=== PATIENT | female | born 1975 | race Caucasian/White ===

== ENCOUNTER → 2023-07-25 16:00 | Outpatient (REF) | payer BC, SELFPAY ==
[2023-08-03 02:45] LABS: HPV, High Risk Not Detected; HPV, High Risk Source Cervical
== END ==
LOC: CPAP 16:00
PROVIDERS: ATTENDING PHYSICIAN Nurse Practitioner Adult Health
DX: Z01.419 Encounter for gynecological examination (general) (routine) without abnormal findings (principal)
CPT/HCPCS: 87624; G0123

== ENCOUNTER → 2023-08-15 17:20 | Outpatient (REF) | payer BC, SELFPAY | LOC: WDC 17:20 | PROVIDERS: ATTENDING PHYSICIAN Nurse Practitioner Adult Health; FAMILY PHYSICIAN Family Medicine | DX: Z12.31 Encounter for screening mammogram for malignant neoplasm of breast (principal) | CPT/HCPCS: 77063; 77067 ==

== ENCOUNTER → 2023-12-20 08:30 | Outpatient (REF) | payer BC, SELFPAY ==
[2023-12-20 11:46] LABS: Hematocrit 37.2 % (37.0-47.0); Hemoglobin 12.8 g/dL (12.0-16.0); Mean Corp Hgb Conc. 34.4 g/dL (33.0-37.0); Mean Corpuscular Hgb 29.5 pg (27.0-31.0); Mean Corpuscular Volume 85.7 fL (81.0-99.0); Platelet Count 302 10^3/uL (130-400); Red Blood Cell Count 4.34 10^6/uL (4.20-5.40); Red Cell Dist. Width 13.5 % (11.5-14.5); White Blood Cell Count 6.4 10^3/uL (4.8-10.8)
[2023-12-20 12:10] LABS: ALT (SGPT) 14 U/L (0-35); AST (SGOT) 19 U/L (14-36); Albumin 4.6 g/dl (3.5-5.0); Alkaline Phosphatase 74 U/L (38-126); Blood Urea Nitrogen 8 mg/dl (7-17); Calcium 9.8 mg/dl (8.4-10.2); Carbon Dioxide 25 mmol/L (22-30); Chloride 103 mmol/L (98-107); Glucose 91 mg/dl (70-99); HDL Cholesterol 60 mg/dl; LDL Cholesterol, Calculated 107 mg/dl; Potassium 4.5 mmol/L (3.5-5.1); Sodium 136 mmol/L (135-145); Total Bilirubin 0.3 mg/dl (0.2-1.3); Total Cholesterol 184 mg/dl (50-199); Total Protein 6.8 g/dl (6.3-8.2); Triglyceride 88 mg/dl (10-149); Very Low Density Lipoprotein 17 mg/dl (0-30); eGFR > 60.00
[2023-12-20 12:45] LABS: Free T3 2.98 pg/ml (2.77-5.27); Free T4 0.74 ng/dl (0.78-2.19)
[2023-12-20 12:48] LABS: Vitamin D, 25-OH*** 38.8 ng/mL (30-80)
[2023-12-20 12:58] LABS: TSH 1.76 uIU/ml (0.47-4.68)
[2023-12-20 14:36] LABS: Glycohemoglobin (HgbA1c) 5.4 % (4.0-5.6)
== END ==
LOC: REG 08:30
PROVIDERS: ATTENDING PHYSICIAN Nurse Practitioner Adult Health
DX: Z00.00 Encounter for general adult medical examination without abnormal findings (principal); R53.83 Other fatigue; E55.9 Vitamin D deficiency, unspecified; E78.2 Mixed hyperlipidemia; R00.2 Palpitations
CPT/HCPCS: 36415; 80053; 80061; 82306; 83036; 84439; 84443; 84481; 85027

== ENCOUNTER 2024-02-25 12:40 | Emergency (ER) | payer BC, SELFPAY ==
[2024-02-25 13:02] VITALS: BP 176/109
--- NOTE | 2024-02-25 13:23 | ED.GENMED ---
History of Present Illness
General
Chief Complaint: Abdominal Pain
Source: patient
Exam Limitations: none
Time Seen by Provider: 02/25/24 13:22
Nursing documentation reviewed up to this point in time: agreed with
History of Present Illness
History of Present Illness:
48-year-old female with no reported chronic medical issues presents to the emergency room for evaluation of chest/upper abdominal pain. 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 She says that she was
running around doing tasks for the code when she began to have acute onset chest pain and epigastric pain. She reports radiation to the back and to the right jaw. She says that initially she thought it could be heartburn and so she tried some
Nexium and some Tums but symptoms actually worsened and became quite severe. She says she has had some associated nausea but no vomiting. She denies any shortness of breath. She denies any dizziness. Denies any palpitations. She says that with
symptoms escalating she was sent to the emergency room to be evaluated. She says that since arrival her symptoms have improved a bit from their maximum severity but have not resolved. She says that she does exercise on a regular basis typically
walking for a few miles�she denies any history of exertional symptoms. She denies any known cardiac history. She denies any history of gallstones or GI issues.
Past History
Past History
ED Past Medical History: None
ED Past Surgical History: None
Social History
Living: with family
Employment: Employed
Review of Systems
Review of Systems
All Other Systems: ROS reviewed and negative except as documented in HPI and ROS
Constitutional: Denies fever or chills
Respiratory: Denies trouble breathing
Cardiac: Reports chest pain; Denies palpitations
ABD/GI: Reports abdominal pain and nausea; Denies vomiting
: Denies flank pain
Musculoskeletal: Denies neck pain or back pain
Neurological: Denies dizzy or headache
Phy Exam
Physical Exam
Physical Exam:
General: Awake, alert, oriented x3; appears anxious
Head: Normocephalic, atraumatic
Eyes: Conjunctiva normal, sclera anicteric
Throat: Airway intact, handling secretions
Neck: Trachea midline, no JVD
Lungs: Clear to auscultation bilaterally, no wheezing, rales, rhonchi
Heart: Regular rate and rhythm, no murmurs, gallops, or rubs
Abd: Soft, non distended, mildly tender in the epigastrium
Neuro: No gross deficits
Extremities: No edema in extremities, warm and well-perfused
Scores
Heart Failure Risk
Heart Failure Risk Score: Not Applicable
Heart Score for Chest Pain Patients
STEMI patient?: No
History: Moderately Suspicious
ECG: Normal
Age: >45 - <65 years
Risk Factors: No Risk Factors
Troponin: </= Normal Limit
Heart Score for Chest Pain Patients: 2
Heart Score Risk: 2.5% MACE over next 6 weeks
Withdrawal Assessment of Alcohol
Withdrawal Assessment Completed?: Not applicable
Course
Orders/Labs/Results
Orders:
Orders
02/25/24 13:02
Electrocardiogram (*1) Urgent
Reason for Study: Abdominal Pain
EKG- Treatment ONCE
Test Result ONCE
02/25/24 13:24
US Abdomen Complete/Upper Urgent
Comment:
Reason For Exam: upper abd pain, N/V
02/25/24 13:39
Complete Blood Count/With Diff Urgent
Comprehensive Metabolic Panel Urgent
HCG, Serum Qualitative Screen Urgent
Lipase Urgent
Troponin I Urgent
02/25/24 13:58
Nitroglycerin Sublingual [Nitrostat (Sublingual)] 0.4 mg SL NOW STA
Ondansetron Injectable [Zofran] 4 mg IV NOW STA
02/25/24 14:09
Electrocardiogram (*1) Urgent
Reason for Study: Chest Pain
EKG- Treatment ONCE
02/25/24 14:30
CARDIOLOGY CONSULT Urgent
Consulting Provider: Mike Contreras
Was physician already notified: Yes
02/25/24 14:35
Echo 2D MMode Color/Doppler Urgent
Reason for Study: chest pain
Cardiology Consult: Mike Contreras
02/25/24 15:09
Urinalysis Reflex To Culture Urgent
Date Specimen was Collected: 02/25/24
Time Specimen was Collected: 13:02
02/25/24 15:51
Troponin I Urgent
02/25/24 16:34
Troponin I Urgent
Abnormal Lab Results
02/25/24
13:39
Absolute Monos (auto) 0.7 H 10^3/uL
(0.1-0.6)
Glucose 114 H mg/dl
(70-99)
Albumin 5.1 H g/dl
(3.5-5.0)
02/25/24 13:39
02/25/24 13:39
Vital Signs
Initial and Last Documented VS:
Initial Vital Signs
Temp Pulse Resp BP Pulse Ox
36.7 C 73 16 176/109 98
02/25/24 13:02 02/25/24 13:02 02/25/24 13:02 02/25/24 13:02 02/25/24 13:02
Last Documented Vital Signs
Temp Pulse Resp BP Pulse Ox
36.7 C 77 18 131/81 97
02/25/24 13:02 02/25/24 16:15 02/25/24 16:18 02/25/24 16:00 02/25/24 16:15
MDM/Problems Addressed
Differential Diagnosis Includes:
ACS/[place], cholelithiasis/cholecystitis, pancreatitis, gastritis, PUD, nephrolithiasis, aortic dissection considered somewhat less likely clinically
MDM/Problems Addressed:
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 Symptoms have improved but not resolved. Hypertensive to 176/109 on
arrival but otherwise normal vitals. Physical exam as above. Plan to place an IV check labs including a CBC and a CMP. Will check lipase. Check urinalysis. EKG shows no STEMI�will need to trend cardiac enzymes as story is at least somewhat
concerning for anginal symptoms. Check upper abdominal ultrasound to evaluate for signs of cholelithiasis/cholecystitis. Can trial some nitroglycerin and give Zofran as well. Will monitor closely reassess after the above�aortic dissection is a
consideration given abrupt onset of her symptoms and her hypertension but symptoms are improving and she does not appear in distress she has no pulse deficit�hold on CTA for now but low threshold if symptoms and vitals not improving.
Labs reviewed: CBC and CMP unremarkable. Troponin undetectable. Gallbladder ultrasound unremarkable. Reassessment after nitroglycerin patient says symptoms completely resolved. Case discussed with cardiology for consultation with concern for
anginal chest pain�will trend troponins and obtain an echocardiogram.
Echocardiogram reassuring. Repeat troponin undetectable. Patient was evaluated cardiology at bedside�with negative troponins and no recurrence of chest pain recommend discharge and a arranging for outpatient stress testing. Patient feels
comfortable with this plan. Spoke about return precautions and all questions answered.
Acute Exacerbation and/or Progression of Chronic Illness:
Acutely hypertensive
Acute Exacerbation and/or Progression of Chronic Illness: HTN
*Pulse Oximetry
Patient hypoxic: no
*EKG
Interpreted by ED Provider?: Yes
Heart Rate: 73
Rate: normal
Rhythm: sinus
Norris: normal axis
Interval: normal interval
QRS Pattern: normal QRS
Ischemia: no ischemia
*Critical Care Note
Total Time (30-74mins, 75-104mins- exclusive of procedures): Not Applicable
Data Reviewed
Source: patient
Patient Management
Discussion with other providers: Revenue Field Auditor (Discussed with cardiology)
ED Attending Note
-
Portions of this chart may have been created with voice recognition software.� Occasional wrong word or��sound alike� substitutions may have occurred due to the inherent limitations of voice recognition software.
Discharge Plan
Departure
Patient Disposition: Home (Routine Discharge)
Date of Disposition: 02/25/24
Time of Disposition: 17:38
Patient with high blood pressure during this ER visit?: Yes
Discharge Problem:
Chest pain
Instructions: Chest Pain DCA Follow Up
Referrals:
Mike Contreras DO [Active] - Keep scheduled appt
Tonny Otoole DO [Family Provider] -
Activity Restrictions/Additional Instructions:
You should follow-up with cardiology as directed�they will call you in the morning to schedule you for follow-up. You should refrain from any physical exertion while awaiting your cardiac evaluation. If you have recurrence of chest pain or develop
any new symptoms that are concerning please return immediately to the emergency room.
Thank you for visiting the Emergency Department at [facility].
1. Please schedule a follow up appointment as directed. Call first thing tomorrow morning to make an appointment.
2. If indicated, please take your medications as instructed and indicated on discharge paperwork.
3. If any of your symptoms do not improve, or persist, or become more severe within 6-12 hours, please return to the emergency department for further care.
4. Please return to the emergency department if you develop a headache, neck pain/stiffness, fever greater than 100.4F, chest pain, shortness of breath, persistent nausea, vomiting, slurred speech, difficulty walking, numbness/tingling, weakness,
signs of infection or any other symptoms that are worrisome to you.
Please call [phone] if you have any questions.
Interventions
Interventions:
*Risk Screen - Suicide Last Done: 02/25/24 13:02
*General Assessment Last Done: 02/25/24 13:28
*Neglect/Abuse Screening Last Done: 02/25/24 13:02
*ED COVID-19 Vaccine History Last Done: 02/25/24 13:28
KA-Tigvyu-Myknknyhwp Assessment Last Done: 02/25/24 14:34
Discharge Date and Time
Print Language: GERMAN
[2024-02-25 13:28] VITALS: BMI 33.0
[2024-02-25 13:50] LABS: % Basophils 0.3 % (0-2); % Eosinophils 0.4 % (0-6); % Immature Granulocytes 0.2 % (0-0.5); % Lymphocytes 24.5 % (20.5-51.1); % Neutrophils 67.6 % (42.2-75.2); Absolute Lymphocytes 2.3 10^3/uL (1.2-3.4); Absolute Monocytes 0.7 10^3/uL (0.1-0.6); Absolute Neutrophils 6.2 10^3/uL (1.4-6.5); Hematocrit 37.2 % (37.0-47.0); Hemoglobin 13.2 g/dL (12.0-16.0); Mean Corp Hgb Conc. 35.5 g/dL (33.0-37.0); Mean Corpuscular Hgb 30.9 pg (27.0-31.0); Mean Corpuscular Volume 87.1 fL (81.0-99.0); Nucleated Red Blood Cells % 0 %; Platelet Count 262 10^3/uL (130-400); Red Blood Cell Count 4.27 10^6/uL (4.20-5.40); Red Cell Dist. Width 12.6 % (11.5-14.5); White Blood Cell Count 9.2 10^3/uL (4.8-10.8)
[2024-02-25 14:03] VITALS: BP 133/90
[2024-02-25] MEDS: ZOFRAN 4 MG IV (14:05)
[2024-02-25] MEDS: NITROSTAT (SUBLINGUAL) 0.4 MG SL (14:05)
[2024-02-25 14:07] LABS: HCG, Serum Qualitative Screen Negative
[2024-02-25 14:14] LABS: ALT (SGPT) 18 U/L (0-35); AST (SGOT) 23 U/L (14-36); Albumin 5.1 g/dl (3.5-5.0); Alkaline Phosphatase 81 U/L (38-126); Blood Urea Nitrogen 10 mg/dl (7-17); Carbon Dioxide 25 mmol/L (22-30); Chloride 100 mmol/L (98-107); Estimated Creatinine Clearance 103 ml/min; Glucose 114 mg/dl (70-99); Lipase 95 U/L (23-300); Potassium 3.8 mmol/L (3.5-5.1); Sodium 138 mmol/L (135-145); Total Bilirubin 0.4 mg/dl (0.2-1.3); Total Protein 7.4 g/dl (6.3-8.2); eGFR > 60.00
[2024-02-25 14:23] LABS: Troponin I < 0.012 ng/ml
[2024-02-25 14:37] VITALS: BP 114/80
[2024-02-25 15:00] VITALS: BP 127/92
--- NOTE | 2024-02-25 15:18 | CON.CAR ---
Addendum entered and electronically signed by Mike Contreras DO 02/25/24 20:50:
I saw and examined the patient.
The Chief Environmental Commitment Officer's note was reviewed and I agree with the note.
Comment:
Plan:
Discussed her atypical chest pain
Firs trop was negative. If second negative, then can follow up as outpt for ischemic eval.
Urgent echo was unremarkable with preserved EF and no significant valve disease.
Check outpt stress echo to eval for ischemia.
Outpt follow up arranged
Discussed with family at bedside.
Discussed with ER
Original Note:
Consultation
Consultation Request
Date/Time Consultation Requested: 02/25/24
Date/Time Consultation Performed: 02/25/24
Requesting Provider: Dr. John in the ER
Performing Provider: Dr. Contreras
Reason for Consultation: Chest pain
Medical History
-
History of Present Illness:
Patient came to [facility] with chest and epigastric pain that happened at work and cardiology is now consulted. Patient awoke in her usual state of health this morning and came to work. 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
responded to a code 9 which included running and moving quickly in the high pressure situation. During the code patient had pain in her epigastrium into chest and up into her back, neck and then ears. Pain was not improved with TUMS and then Nexium.
Patient has felt nauseous without vomiting. Came to the ER and symptoms gradually started to resolve. BP initially 176/109 in the ER and then NTG SL x1 given at 1358 with improvement in BP to 133/90 and then 144/80. No known h/o HTN and patient
reports that her BP is always in the normal range when she sees her PCP. No previous cardiac testing. Patient has walked on the treadmill for a few miles within the past few weeks without chest pain.
PMH:
No chronic conditions
Past Medical History
Past Medical History: Other (in HPI)
Past Surgical History: Gynecological (tubal ligation)
Social History
Tobacco: Non-Smoker
Drug: None
Personal:
Living: With Family
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
Family History
Family History: Hypertension (mother, also palpitations)
Allergies / Home Medications
Allergy/AdvReac Type Severity Reaction Status Date / Time
No Known Allergies Allergy Unverified 06/21/10 06:31
Review of Systems
-
History Source: Patient
All other systems: Negative unless noted
Physical Exam
Vital Signs
Temp Pulse Resp BP Pulse Ox
98.1 F 71 13 144/80 97
02/25/24 13:02 02/25/24 14:30 02/25/24 14:30 02/25/24 14:10 02/25/24 14:30
GEN: NAD, AAOx3
HEENT: EOMI, MMM, wearing glasses
LUNGS: Clear anteriorly without wheeze
CV: Reg, S1/S2, no murmur. Equal radial and PT pulses B/L
ABD: ND
EXT: No clubbing, cyanosis, lesions or edema B/L
NEURO: Gross non-focal
SKIN: No rash
Lab Results
02/25/24 13:39
02/25/24 13:39
Troponin I < 0.012 ng/ml 02/25/24 13:39
Impression / Plan
-
PCP: Dr. Jessica Macdonald
Cardiology: None prior to admission
Impression:
Epigastric and chest pain
Elevated BP in the ER without h/o HTN
Nausea without vomiting
Echo 02/25/24: Study pending
Plan:
-Patient came to [facility] with chest and epigastric pain that happened at work and cardiology is now consulted. Patient awoke in her usual state of health this morning and came to work. 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
responded to a code 9 which included running and moving quickly in the high pressure situation. During the code patient had pain in her epigastrium into chest and up into her back, neck and then ears. Pain was not improved with TUMS and then Nexium.
Patient has felt nauseous without vomiting. Came to the ER and symptoms gradually started to resolve. BP initially 176/109 in the ER and then NTG SL x1 given at 1358 with improvement in BP to 133/90 and then 144/80. No known h/o HTN and patient
reports that her BP is always in the normal range when she sees her PCP. No previous cardiac testing. Patient has walked on the treadmill for a few miles within the past few weeks without chest pain.
-Troponin undetectable. Check again now
-ECG without acute ischemic changes.
-Pending 2nd Troponin would plan on outpatient SE and if denied then treadmill stress test.
-Will monitor BPs during stress test.
[2024-02-25 15:26] LABS: Urine Albumin Negative (Neg - Trace); Urine Bilirubin Negative (Negative); Urine Character Slightly Cloudy (Clear); Urine Color Straw; Urine Glucose Negative (Negative); Urine Ketone Negative (Negative); Urine Leukocyte Negative (Negative); Urine Nitrite Negative (Negative); Urine Occult Blood Negative (Negative); Urine Urobilinogen Negative (Neg - 1+); Urine pH 6.5 (5.0-9.0)
[2024-02-25 16:00] VITALS: BP 131/81
[2024-02-25 17:00] VITALS: BP 115/83
[2024-02-25 17:25] LABS: Troponin I < 0.012 ng/ml
== END 2024-02-25 18:09 | disposition home or self-care (01) ==
LOC: EMR 12:40
PROVIDERS: Emergency Medicine; CONSULT PHYSICIAN Nuclear Medicine Nuclear Cardiology; EMERGENCY PHYSICIAN Emergency Medicine; FAMILY PHYSICIAN Family Medicine
DX: R07.89 Other chest pain (principal); Z82.49 Family history of ischemic heart disease and other diseases of the circulatory system; Z98.51 Tubal ligation status
CPT/HCPCS: 99284; 76700; 80053; 81003; 83690; 84484; 84703; 85025; 93005; 93306

== ENCOUNTER → 2024-10-02 18:26 | Outpatient (REF) | payer BC, SELFPAY | LOC: WDC 18:26 | PROVIDERS: ATTENDING PHYSICIAN Nurse Practitioner Adult Health; FAMILY PHYSICIAN Family Medicine | DX: Z12.31 Encounter for screening mammogram for malignant neoplasm of breast (principal) | CPT/HCPCS: 77063; 77067 ==